=== PATIENT | male | born 2000 | race Caucasian/White ===

== ENCOUNTER 2025-08-30 10:20 | Outpatient (CLI) | payer OTHER, SELFPAY | END 2025-08-30 10:21 | disposition home or self-care (01) | LOC: NFLDREF 09-02 18:14 | PROVIDERS: PCP Family Medicine; Visit Provider Family Medicine | DX: Z00.00 Encounter for general adult medical examination without abnormal findings (principal); Z13.6 Encounter for screening for cardiovascular disorders | CPT/HCPCS: 80053; 80061 ==